=== PATIENT | male | born 1980 | race Caucasian/White ===

== ENCOUNTER 2016-10-24 12:15 | Emergency (ER) | payer BC, MEDICAID ==
[2016-10-24 12:20] VITALS: BP 153/90
[2016-10-24] MEDS ORDERED: HYDROcodone/ACETAMIN 5-325 MG* 1 TAB PO ONE (12:54)
--- NOTE | 2016-10-24 14:02 | RAD ---
Indication: Severe pain following shoveling snow on Tuesday and . Unable to walk due to pain. Comparison: None. Technique: Noncontrast CT lumbar sacral spine. Multiplanar reformation. Report: Negative for paravertebral hematoma. Negative for fracture or spondylolysis at any level. Normal vertebral alignment without spondylolisthesis at any level. Degenerative spondylosis partially visualized T10-T11 and T11-T12 levels. At the fully visualized T11-T12 level there is severe disc space narrowing with associated reactive endplate sclerosis. Mild dorsal disc bulge without resulting central canal stenosis. Degenerative spondylosis results in mild RIGHT foraminal stenosis. T12-L1: Unremarkable for age. L1-L2: Unremarkable for age. L2-L3: Unremarkable for age. L3-L4: Moderate disc space narrowing. In addition to annular disc bulge there is a LEFT subarticular to extraforaminal disc extrusion with mild cephalad and caudal extension. Resulting LEFT lateral recess stenosis containing the traversing LEFT L4 nerve and moderately severe LEFT foraminal stenosis containing the exiting L3 nerve. The extraforaminal component may also result in mass effect on the descending extraforaminal L2 nerve. L4-L5: Minimal annular disc bulge. Degenerative spondylosis and mild facet ligamentous hypertrophic arthropathy results in mild RIGHT and moderate LEFT foraminal stenosis. L5-S1: Minimal annular disc bulge with only slight impression on the ventral margin of the thecal sac. IMPRESSION: 1. Negative for fracture. 2. At L3-L4 there is a disc extrusion with resulting LEFT lateral recess stenosis as well as severe LEFT foraminal stenosis and additionally potential mass effect on the descending extra foraminal LEFT L2 nerve. 3. At L4-L5 degenerative spondylosis and mild facet ligamentous hypertrophic arthropathy results in mild RIGHT and moderate LEFT foraminal stenosis.
--- NOTE | 2016-10-24 15:20 | ED ---
Back Pain - HPI Summary HPI Summary: Patient arrives to ED with 10/10 mid lower back pain radiating down the left leg since this morning. He denies trauma, but states 2 days ago he was shoveling snow, felt fine yesterday, then his back flared up this morning. While he flexed forward, he noted a strong pain beginning in the low back and radiating to the foot. Describes this pain as sharp and burning. He is unable to bear weight on the foot. He is able to ambulate with support. Denies bladder or bowel dysfunction. Denies any malignancy. He notes to numbness and tingling in the left foot. - History of Current Complaint Chief Complaint: EDBackInjuryPain Stated Complaint: BACK PIAN Time Seen by Provider: 10/24/16 12:22 Hx Obtained From: Patient Onset/Duration: Sudden Onset Onset/Duration: Started Hours Ago Timing: Constant Back Pain Location: Is Discrete @ - left to mid back radiating to left leg to left foot Severity Currently: Severe Pain Intensity: 10 Pain Scale Used: 0-10 Numeric Character: Sharp, Throbbing Aggravating Symptom(s): Movement, Lifting, Bending, Walking Alleviating Symptom(s): Nothing Associated Signs And Symptoms: Positive: Numbness, Tingling, Pain with Weight Bearing - Allergies/Home Medications Allergies/Adverse Reactions: Allergies Allergy/AdvReac Type Severity Reaction Status Date / Time No Known Allergies Allergy Verified 12/30/15 08:17 PMH/Surg Hx/FS Hx/Imm Hx Previously Healthy: Yes Endocrine/Hematology History: Denies: Hx Diabetes Cardiovascular History: Reports: Hx Hypertension Denies: Hx Myocardial Infarction Respiratory History: Reports: Hx Asthma, Hx Chronic Obstructive Pulmonary Disease (COPD), Other Respiratory Problems/Disorders - BORN WITH BAD LUNGS, Musculoskeletal History: Reports: Hx Back Problems Neurological History: Denies: Hx CVA, Hx Headaches, Hx Migraine, Hx Transient Ischemic Attacks (TIA ) - Immunization History Immunizations Up to Date: Unable to Obtain/Confirm Infectious Disease History: No Infectious Disease History: Denies: Traveled Outside the [place] in Last 30 Days - Family History Known Family History: Positive: None Family History: R & n/C - Social History Occupation: Employed Full-time Lives: With Family Alcohol Use: Occasionally Hx Substance Use: Yes Substance Use Type: Reports: Cocaine, Marijuana, Other Substance Use Comment - Amount & Last Used: none today Hx Tobacco Use: Yes Smoking Status (MU): Former Smoker Review of Systems Constitutional: Negative Cardiovascular: Negative Respiratory: Negative Gastrointestinal: Negative Positive: no symptoms reported, see HPI Positive: Arthralgia - left sided back pain, Myalgia - left sided back pain Skin: Negative Positive: Paresthesia - left foot, Numbness - left foot Psychological: Normal All Other Systems Reviewed And Are Negative: Yes Physical Exam Triage Information Reviewed: Yes Vital Signs On Initial Exam: Initial Vitals Temp Pulse Resp BP Pulse Ox 98.4 F 89 16 153/90 100 10/24/16 12:17 10/24/16 12:17 10/24/16 12:17 10/24/16 12:17 10/24/16 12:17 Vital Signs Reviewed: Yes Appearance: Positive: Pain Distress Skin: Positive: Warm, Skin Color Reflects Adequate Perfusion Head/Face: Positive: Normal Head/Face Inspection Eyes: Positive: SARAN, Conjunctiva Clear Neck: Positive: Supple, No Lymphadenopathy Respiratory/Lung Sounds: Positive: Clear to Auscultation, Breath Sounds Present Cardiovascular: Positive: RRR Bowel Sounds: Positive: Present Musculoskeletal: Positive: Normal, Strength/ROM Intact Neurological: Positive: Speech Normal, Other - decreased sensation in left foot throughout. Psychiatric: Positive: Normal AVPU Assessment: Alert Diagnostics - Vital Signs Vital Signs Temp Pulse Resp BP Pulse Ox 10/24/16 12:17 98.4 F 89 16 153/90 100 - Laboratory Lab Statement: Any lab studies that have been ordered have been reviewed, and results considered in the medical decision making process. - CT No standard instances CT Interpretation: Positive (See Comments) CT Interpretation Completed By: Radiologist - IMPRESSION: 1. Negative for fracture. 2. At L3-L4 there is a disc extrusion with resulting LEFT lateral recess stenosis as well as severe LEFT foraminal stenosis and additionally potential mass effect on the descending extra foraminal LEFT L2 nerve. 3. At L4- L5 degenerative spondylosis and mild facet ligamentous hypertrophic arthropathy results in mild RIGHT and moderate LEFT foraminal stenosis. Back Pain Course/Dx - Course Course Of Treatment: Negative for fracture, but new onset left lateral recess stenosis and left foraminal stenosis. potential mass effect on left side. degenerative spondylosis. Patient made aware of results. oxycodone for pain management. Patients pain improved with medication. Encouraged follow up with ortho as nothing is emergent. Offered crutches to which patient accepted. Rx for oxycodone and lidocaine patches. Note given for 1 week off work. Patient had 1 BP medication left and asked us to refill. Provider stated she was able to give 5 day supply and to follow up with PCP for refill. Patient agrees to discharge plan. - Diagnoses Provider Diagnoses: lumbar spinal stenosis, degenerative disc disease Discharge - Discharge Plan Condition: Stable Disposition: HOME Prescriptions: Amlodipine Besylate [Norvasc-] 5 mg PO DAILY #5 tab Hydrocodone/Acetamin 10/325(NF [[place] 10/325 (NF)] 1 tab PO Q6H #30 tab MDD 6 Lidocaine PATCH 5%* [Lidoderm 5% Patch*] 1 patch TRANSDERM DAILY #5 patch predniSONE TAB* [Deltasone TAB*] 50 mg PO DAILY #6 tab MDD 1 Patient Education Materials: Lumbar Spinal Stenosis (ED), Degenerative Disc Disease (ED), Lower Back Exercises (ED) Forms: *Work Release Referrals: Arpan Purdy MD [Medical Doctor] - No Primary Care Phys,NOPCP [Primary Care Provider] - Additional Instructions: Follow up with Dr. Purdy's office. Call for appt tomorrow. If your symptoms worsen, you lose function of bowel or bladder, come back to ED. Try and ambulate when you can to prevent stiffness. Hydrocodone up to every 6 hours as needed for pain Ibuprofen 600mg three times daily with meals for inflammation and pain Lidocaine patch daily for 12 hours only. Prednisone 1 tab daily for 6 days. Crutches as needed for ambulation. Moist heat to the area. You may try a back brace if you feel it will help with the discomfort. CT results: IMPRESSION: 1. Negative for fracture. 2. At L3-L4 there is a disc extrusion with resulting LEFT lateral recess stenosis as well as severe LEFT foraminal stenosis and additionally potential mass effect on the descending extra foraminal LEFT L2 nerve. 3. At L4-L5 degenerative spondylosis and mild facet ligamentous hypertrophic arthropathy results in mild RIGHT and moderate LEFT foraminal stenosis. You are being seen in the ED following a back injury without the ability to ambulate. You are being diagnosed with spinal stenosis with mass affecting your left nerve and you will be referred to a neurosurgeon. You should be off work until follow up with neurosurgeon to determine status of stenosis and need for surgery.
== END 2016-10-24 15:47 | disposition home or self-care (01) ==
LOC: ED 12:15
DX: M48.06 Spinal stenosis, lumbar region (principal); M51.36 Other intervertebral disc degeneration, lumbar region; I10 Essential (primary) hypertension; J44.9 Chronic obstructive pulmonary disease, unspecified; J45.909 Unspecified asthma, uncomplicated; Z87.891 Personal history of nicotine dependence
CPT/HCPCS: 72131; 99282

== ENCOUNTER 2016-12-09 10:22 | Observation (INO) | payer OTHER ==
[~2016-12-09 10:22] MED LIST: Bacitracin IV* 50,000 UNITS INJ ONE; Buffered Lidocaine 1% SYRIN* 3 ML/SYR SYRINGE INTRADERM ONE; Lidocain 1% EPI 1:100,000 * 30 ML MDV ONE; Thrombin 5,000 UNITS* 1 APPLIC KIT - topical use - TOPICAL ONE; ceFAZolin 2 GM PREMIX(*) 2 GM/50 ML BAG IVPB ONE
[2016-12-09] MEDS ORDERED: Midazolam* 1 MG/ML 2 ML VIAL (2 MG) ONE (11:16)
[2016-12-09] MEDS ORDERED: Dexamethasone IV* 4 MG/ML 1 ML (4 MG) ONE (11:39)
[2016-12-09] MEDS ORDERED: Ondansetron INJ* 2 MG/ML VIAL ONE (11:39)
[2016-12-09] MEDS ORDERED: Lidocaine 2% PF * 5 ML VIAL ONE (11:39)
[2016-12-09] MEDS ORDERED: Propofol* 10 MG/ML 20 ML BTL IV PUSH ONE (11:39)
[2016-12-09] MEDS ORDERED: Atracurium* 10 MG/ML 10 ML VIAL ONE (11:39)
[2016-12-09] MEDS ORDERED: fentaNYL* 50 MCG/ML 2 ML VIAL (100 MCG VIAL) ONE ×3 (11:39→13:37)
[2016-12-09] MEDS ORDERED: DiMENhydriNATE IV* 50 MG/ML VIAL IV PUSH PRN (12:28)
[2016-12-09] MEDS ORDERED: oxyCODONE/Acetamin 5/325 MG* TAB PO PRN (12:28)
[2016-12-09] MEDS ORDERED: Scopolamine 1.5 mg* PATCH TRANSDERM PRN (12:28)
[2016-12-09] MEDS ORDERED: Ondansetron INJ* 2 MG/ML VIAL IV PRN (13:12)
[2016-12-09] MEDS ORDERED: Magnesium Hydroxide LIQ* 30 ML UDC PO PRN (13:12)
[2016-12-09] MEDS ORDERED: oxyCODONE TAB* 5 MG TAB PO PRN (13:12)
[2016-12-09] MEDS ORDERED: Acetaminophen TAB* 325 MG PO PRN (13:12)
[2016-12-09] MEDS: fentaNYL* 50 MCG/ML 2 ML VIAL (100 MCG VIAL) IV PRN ×4 (13:19→13:45)
[2016-12-09] MEDS ORDERED: oxyCODONE/Acetamin 5/325 MG* TAB ONE (13:38)
[2016-12-09] MEDS ORDERED: HYDROmorphone* 1 MG/ML 1 ML SYR ONE (13:48)
[2016-12-09] MEDS: HYDROmorphone* 1 MG/ML 1 ML SYR IV PRN ×4 (13:49→14:40)
--- NOTE | 2016-12-09 14:18 | RAD ---
Indication: Lumbar L3 -- for discectomy. Comparison: November 24, 2016 MRI. Technique: Portable prone crosstable lateral lumbar sacral spine 1127 hours Report: Spot image documents soft tissue retractor at the L4 level with anterior margin of the metallic instrument at the level of the inferior articular facet of L3. Normal vertebral alignment. L3-L4 disc space narrowing and mild osteophytosis. IMPRESSION: Intraoperative control film.
[2016-12-09] MEDS: HYDROcodone/ACETAMIN 5-325 MG* 1 TAB PO PRN ×2 (16:28→20:58)
[2016-12-09] MEDS: Morphine INJ* 4 MG/ML 1 ML SYRINGE IV PRN ×2 (18:04→22:15)
[2016-12-09] MEDS: Cyclobenzaprine TAB* 10 MG PO SCH (20:57)
[2016-12-10] MEDS: HYDROcodone/ACETAMIN 5-325 MG* 1 TAB PO PRN ×3 (01:10→09:03)
[2016-12-10] MEDS: Morphine INJ* 4 MG/ML 1 ML SYRINGE IV PRN ×2 (02:27→06:33)
[2016-12-10] MEDS: Cyclobenzaprine TAB* 10 MG PO SCH (07:48)
--- NOTE | 2016-12-10 08:12 | PN ---
Progress Note - Progress Note SOAP: Subjective: []POD # 1 Doing well, c/o incisional pain Pre op leg pain better Has ambulated with walker Objective: []Dressing changed Motor intact Assessment: []Satis post op course Plan: []D/C today D/C instructions given
[2016-12-10 08:54] VITALS: BP 154/91
[2016-12-10] MEDS ORDERED: Pneumococcal Vac Polyvalent* 0.5 ML VIAL IM ONE (09:00)
[2016-12-10] MEDS ORDERED: amLODIPine TAB* 5 MG PO SCH (09:00)
[2016-12-12] MEDS ORDERED: Scopolomine PATCH Remove* 1 NOTE MISC PATCH OFF ONE (12:29)
--- NOTE | 2016-12-12 23:23 | OP ---
DATE OF OPERATION: 12/09/16 - ROOM #331 DATE OF : 76 SURGEON: Arpan Purdy MD ENROLLMENT COORDINATOR: There was no first aid director. ANESTHESIOLOGIST: Berhane Monaco MD ANESTHESIA: General. PRE-OP DIAGNOSIS: Herniated nucleus pulposus, L3-4, on the left. POST-OP DIAGNOSIS: Herniated nucleus pulposus, L3-4, on the left. OPERATIVE PROCEDURE: Lumbar diskectomy, L3-4, on the left with microdissection. DESCRIPTION OF PROCEDURE: After satisfactory general anesthesia was obtained, the patient was placed on the operating room table in the prone position with the chest supported on the Arnie frame and the back slightly flexed. The lumbar region was clipped, prepped, and draped in a sterile manner for lumbar laminectomy and a skin incision outlined from L3 to L4. This incision was infiltrated with 1% Xylocaine with epinephrine after which it was turned down sharply to the level of the lumbar fascia. The fascia was divided along the spinous processes of L3 and L4 and the paraspinal musculature stripped away from these posterior elements using the periosteal elevator and monopolar cautery. Additional superior and lateral exposure was obtained as preoperative imaging has suggested a far lateral herniation of the disk at this level. After removing ligamentum flavum, the operating microscope was brought into the field and the remainder of the procedure was done under microscopic visualization. Utilizing microdissection, additional lateral exposure was obtained. Ultimately, in the far lateral foraminal area at L3- 4, several fragments of disk material were removed. The disk space itself was then entered and cleared of any loose disk material. At the conclusion of the depression, both the L3 and L4 nerve roots were noted to be free from compression. After assuring adequate hemostasis and was thoroughly irrigated, after which a piece of Gelfoam was placed over the laminectomy defect. The fascia was then reapproximated with 0 Vicryl suture. The subcutaneous tissue was closed with 3-0 Vicryl suture and the skin closed with skin clips. The estimated blood loss was less than 50 cc and the final sponge, padding, and needle counts were correct. The patient was taken to the recovery room extubated and in stable condition. [id number]/[facility] #: [id number] [facility]ENTER[facility]airo
== END 2016-12-10 10:15 | disposition home or self-care (01) ==
LOC: OR 10:22 → SSU 13:12
PROVIDERS: ADMIT Neurological Surgery; ATTEND Neurological Surgery
PROC: 01NB0ZZ Release Lumbar Nerve, Open Approach (ICD-10-PCS; 2016-12-09)
PROC: 0SB20ZZ Excision of Lumbar Vertebral Disc, Open Approach (ICD-10-PCS; principal; 2016-12-09 11:45)
DX: M51.16 Intervertebral disc disorders with radiculopathy, lumbar region (principal)
CPT/HCPCS: 72100; 88304; 96374; 96375; A9270-GY; G0378; J0690; J1100; J1170; J2250; J2270; J2405; J2704; J3010